=== PATIENT | female | born 1930 | race Caucasian/White ===

== ENCOUNTER → 2018-02-16 | Outpatient (CLI) | payer MEDICARE ==
[~2018-02-16] MED LIST: AMLO-150 PO; ATOR40TA PO; CLON1PAT7 TD; CLON1PAT9 TD; DICL75TA2 PO; LEVO50TA5 PO; LOSA50TA7 PO; MOEX1TAB5 PO
[2018-02-16 14:44] LABS: ALANINE AMINOTRANSFERASE 34 U/L (12-78); ANION GAP 6 mmol/L (5-15); CALCIUM 9.2 mg/dL (8.5-10.1); CHLORIDE 107 mmol/L (98-107); CREATININE 1.18 mg/dL (0.55-1.02)
[2018-02-16 14:46] LABS: ALKALINE PHOSPHATASE 86 U/L (45-117); BILIRUBIN,TOTAL 0.3 mg/dL (0.2-1.0); TOTAL PROTEIN 7.3 g/dL (6.4-8.2)
== END | disposition home or self-care (01) ==
LOC: STAR 13:05
PROVIDERS: ATTEND Orthopaedic Surgery
DX: Z01.818 Encounter for other preprocedural examination (principal); R20.2 Paresthesia of skin; G56.03 Carpal tunnel syndrome, bilateral upper limbs
CPT/HCPCS: 36415; 80053; 93005

== ENCOUNTER 2018-02-23 11:57 | Day surgery (SDC) | payer MEDICARE ==
[~2018-02-23] VITALS: Ht 156.2 cm; Wt 60.8 kg
[~2018-02-23 11:57] MED LIST changes: -DICL75TA2 PO; +DICL75TA3 PO; +EPHEDRINE 50 MG/ML, 1ML ONE; +LOSA50TA14 PO; -LOSA50TA7 PO; +SUCCINYLCHOLINE 20 MG/ML, 10ML ONE
[2018-02-23] MEDS ORDERED: LACTATED RINGERS 1,000 ML IV SCH (12:42)
[2018-02-23 12:45] VITALS: BP 147/65
[2018-02-23] MEDS ORDERED: LIDOCAINE 1%-EPI 1:100K, 30ML ONE (13:24)
[2018-02-23] MEDS ORDERED: BUPIVACAINE/PF-EPI 0.5% 1:200K ONE (13:24)
[2018-02-23] MEDS ORDERED: PROPOFOL 10 MG/ML, 20ML ONE (14:03)
[2018-02-23] MEDS ORDERED: PHENYLEPHRINE 10 MG/ML ONE (14:05)
[2018-02-23] MEDS ORDERED: CLINDAMYCIN 150 MG/ML, 6ML ONE (14:26)
[2018-02-23] MEDS ORDERED: FENTANYL PF 100 MCG/2ML ONE (14:26)
[2018-02-23] MEDS ORDERED: FENTANYL PF 100 MCG/2ML IV PRN (15:00)
== END 2018-02-23 16:25 | disposition home or self-care (01) ==
LOC: OUT 11:57
PROVIDERS: ATTEND Orthopaedic Surgery
DX: G56.02 Carpal tunnel syndrome, left upper limb (principal); Z88.6 Allergy status to analgesic agent; Z88.1 Allergy status to other antibiotic agents; Z88.8 Allergy status to other drugs, medicaments and biological substances; Z90.49 Acquired absence of other specified parts of digestive tract; Z90.710 Acquired absence of both cervix and uterus; Z98.890 Other specified postprocedural states; Z87.39 Personal history of other diseases of the musculoskeletal system and connective tissue; Z87.891 Personal history of nicotine dependence
CPT/HCPCS: 64721; J0330; J2370; J2704; J3010; J7120; J3490

== ENCOUNTER 2019-01-10 11:21 | Outpatient (CLI) | payer MEDICARE ==
[~2019-01-10 11:21] MED LIST changes: -EPHEDRINE 50 MG/ML, 1ML ONE; -SUCCINYLCHOLINE 20 MG/ML, 10ML ONE
[2019-01-10 12:07] LABS: MEAN CORPUSCULAR HEMOGLOBIN 31.1 pg (27.0-34.8); MEAN CORPUSCULAR HGB CONC 32.9 g/dL (32.4-35.8); MEAN CORPUSCULAR VOLUME 94.7 fL (80-100); MEAN PLATELET VOLUME 7.3 fL (7.4-10.4); PLATELET COUNT 353 x10^3/uL (130-400); RED BLOOD COUNT 4.55 x10^6/uL (3.82-5.3); RED CELL DISTRIBUTION WIDTH 13.9 % (9.6-15.2)
[2019-01-10 12:16] LABS: ANION GAP 8 mmol/L (5-15); CALCIUM 8.9 mg/dL (8.5-10.1); CHLORIDE 106 mmol/L (98-107)
[2019-01-10 12:18] LABS: INTERNATIONAL NORMALIZED RATIO 0.96 (0.93-1.1); PROTHROMBIN TIME 10.1 Seconds (9.6-11.5)
[2019-01-10 12:19] LABS: ALANINE AMINOTRANSFERASE 37 U/L (12-78); ALKALINE PHOSPHATASE 85 U/L (45-117); BILIRUBIN,TOTAL 0.4 mg/dL (0.2-1.0); CREATININE 1.26 mg/dL (0.55-1.02); TOTAL PROTEIN 7.5 g/dL (6.4-8.2)
[2019-01-11 08:48] LABS: MICROSCOPIC AUTO
== END 2019-01-10 23:59 | disposition home or self-care (01) ==
LOC: RAD 11:21
PROVIDERS: ATTEND Internal Medicine
DX: Z01.818 Encounter for other preprocedural examination (principal); D68.59 Other primary thrombophilia; Q79.1 Other congenital malformations of diaphragm
CPT/HCPCS: 36415; 71046; 80053; 81001; 85027; 85610; 85730; 93005